=== PATIENT | female | born 2000 | race Caucasian/White ===

== ENCOUNTER 2018-08-27 10:18 | Emergency (ER) | payer OTHER, BC ==
[2018-08-27 10:25] VITALS: BP 128/78
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
[2018-08-27 11:53] LABS: HCG UR QUAL NEGATIVE
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
== END 2018-08-27 12:41 | disposition home or self-care (01) ==
LOC: ED 10:18
DX: S16.1XXA Strain of muscle, fascia and tendon at neck level, initial encounter (principal); S39.012A Strain of muscle, fascia and tendon of lower back, initial encounter; S70.02XA Contusion of left hip, initial encounter; V48.0XXA Car driver injured in noncollision transport accident in nontraffic accident, initial encounter
CPT/HCPCS: 72100; 72125; 81025; 99283